=== PATIENT | male | born 1990 | race African-American/Black ===

== ENCOUNTER 2017-10-04 19:04 | Emergency (ER) | payer SELFPAY ==
[2017-10-04 19:47] LABS: ABSOLUTE BASOPHILS # (AUTO) 0.1 10^3/uL (0.0-0.2); ABSOLUTE EOSINOPHILS # (AUTO) 0.3 10^3/uL (0.0-0.6); ABSOLUTE LYMPHOCYTES (AUTO) 2.5 10^3/uL (0.5-4.7); ABSOLUTE MONOCYTES (AUTO) 0.6 10^3/uL (0.1-1.4); ABSOLUTE NEUT (AUTO) 4.8 10^3/uL (1.7-8.2); BASOPHILS % (AUTO) 0.8 % (0-2); EOSINOPHILS % (AUTO) 3.3 % (0-6); HEMATOCRIT 38.8 % (37.9-51.0); HEMOGLOBIN 12.7 g/dL (13.5-17.0); LYMPHOCYTES % (AUTO) 30.3 % (13-45); MEAN CORPUSCULAR HEMOGLOBIN 26.9 pg (27.0-33.4); MEAN CORPUSCULAR HGB CONC 32.7 g/dL (32.0-36.0); MEAN CORPUSCULAR VOLUME 82 fl (80-97); MONOCYTES % (AUTO) 7.7 % (3-13); PLATELET COUNT 357 10^3/uL (150-450); RED BLOOD COUNT 4.71 10^6/uL (4.35-5.55); RED CELL DISTRIBUTION WIDTH 15.8 % (11.5-14.0); SEGMENTED NEUTROPHILS % (AUTO) 57.9 % (42-78); TOTAL CELLS COUNTED % (AUTO) 100 %; WHITE BLOOD COUNT 8.3 10^3/uL (4.0-10.5)
[2017-10-04 20:14] LABS: ALANINE AMINOTRANSFERASE 18 U/L (21-72); ALBUMIN 4.2 g/dL (3.5-5.0); ALKALINE PHOSPHATASE 87 U/L (38-126); ANION GAP 10 (5-19); ASPARTATE AMINO TRANSFERASE 15 U/L (17-59); BILIRUBIN,DIRECT 0.3 mg/dL (0.0-0.4); BILIRUBIN,TOTAL 0.4 mg/dL (0.2-1.3); BLOOD UREA NITROGEN 12 mg/dL (7-20); CALCIUM 10.1 mg/dL (8.4-10.2); CARBON DIOXIDE 30 mmol/L (22-30); CHLORIDE 106 mmol/L (98-107); GLUCOSE 125 mg/dL (75-110); POTASSIUM 4.2 mmol/L (3.6-5.0); SODIUM 145.9 mmol/L (137-145); TOTAL PROTEIN 7.3 g/dL (6.3-8.2)
[2017-10-04 20:15] LABS: ACETAMINOPHEN < 10 ug/mL (10-30); ALCOHOL < 10 mg/dL (NONE DETECTED); SALICYLATE < 1.0 mg/dL (2.0-20.0)
--- NOTE | 2017-10-04 20:49 | ER Document Report ---
ED General - General Chief Complaint: Suicidal Ideation Stated Complaint: PSYCH EVAL Time Seen by Provider: 10/04/17 19:51 Cannot obtain history due to: Uncooperative Notes: Patient is a 27-year-old male who presents after being found in a bathtub with a cell phone cord wrapped around his neck. The patient refused to provide additional history and no additional history can be obtained as there are no surrogates at the bedside. The only report that was given by EMS as the family also noted that he had done heroin and cocaine today. When I try to ask the patient questions he repeatedly states "I do not know" and "I just want to get out of here and go home". TRAVEL OUTSIDE OF THE [place] IN LAST 30 DAYS: No - Related Data Allergies/Adverse Reactions: oxycodone Adverse Reaction (Unverified 10/04/17 19:47) Past Medical History - General Information source: Emergency Med Personnel - Social History Smoking Status: Never Smoker Frequency of alcohol use: Occasional Drug Abuse: Cocaine, Heroin Lives with: Family Family History: Reviewed & Not Pertinent Patient has suicidal ideation: Yes Patient has homicidal ideation: No Renal/ Medical History: Denies: Hx Peritoneal Dialysis - Immunizations Hx Diphtheria, Pertussis, Tetanus Vaccination: No Review of Systems - Review of Systems -: Yes ROS unobtainable due to patient's medical condition Physical Exam - Vital signs Vitals: Temp Pulse Resp BP Pulse Ox 98.5 F 81 20 129/73 H 100 10/04/17 19:21 10/04/17 19:21 10/04/17 19:21 10/04/17 19:21 10/04/17 19:21 Interpretation: Normal Notes: PHYSICAL EXAMINATION: GENERAL: Somewhat disheveled but in no acute distress. HEAD: Atraumatic, normocephalic. EYES: Pupils equal round and reactive to light, extraocular movements intact, sclera anicteric, conjunctiva are normal. ENT: nares patent, oropharynx clear without exudates. Moist mucous membranes. NECK: Normal range of motion, supple without lymphadenopathy LUNGS: Breath sounds clear to auscultation bilaterally and equal. No wheezes rales or rhonchi. HEART: Regular rate and rhythm without murmurs ABDOMEN: Soft, nontender, normoactive bowel sounds. No guarding, no rebound. No masses appreciated. EXTREMITIES: Normal range of motion, no pitting or edema. No cyanosis. NEUROLOGICAL: No focal neurological deficits. Moves all extremities spontaneously and on command. PSYCH: Poor eye contact. Blunted affect. Does not appear to be responding to internal stimuli. SKIN: Warm, Dry, normal turgor, no rashes or lesions noted. Course - Re-evaluation Re-evalutation: 10/04/17 20:46 Patient presents by EMS apparently with an attempted suicide. Patient himself is very resistant to providing history. Virtually any question I asked him he simply replies "I do not know". He denies that he was trying to kill himself today. He states that "this girl" is making him do "these things". When I asked him to elaborate he refuses to do so and covers his head with a blanket. He is denying any additional acute medical complaints. It is entirely unclear to me what is going on with this patient as he is refusing to provide any meaningful history but the report from EMS does state that apparently he was found in a bathtub with a cell phone cord wrapped around his neck. However, the patient himself is denying this account although I do not have any recent distress the EMS report. Will place patient on involuntary commitment,'s medical screening labs are unremarkable, medical screening exam is unremarkable , he is cleared for psychiatric disposition. - Vital Signs Vital signs: Temp Pulse Resp BP Pulse Ox 98.5 F 81 20 129/73 H 100 10/04/17 19:21 10/04/17 19:21 10/04/17 19:21 10/04/17 19:21 10/04/17 19:21 - Laboratory Result Diagrams: 10/04/17 19:20 10/04/17 19:20 Laboratory results interpreted by me: 10/04/17 10/04/17 19:20 19:20 Hgb 12.7 L MCH 26.9 L RDW 15.8 H Sodium 145.9 H Glucose 125 H AST 15 L ALT 18 L Salicylates < 1.0 L Acetaminophen < 10 L - EKG Interpretation by Me Additional EKG results interpreted by me: 10/05/17 03:10 Normal sinus rhythm. Rate 91. No ST elevations or depressions. QTC is 458. Discharge - Discharge Clinical Impression: Suicidal ideation, Suicide attempt Condition: Fair Disposition: PSYCH HOSP/UNIT
[2017-10-04] MEDS ORDERED: IBUPROFEN 600 MG TABLET PO ONE (22:04)
[2017-10-05] MEDS ORDERED: LORAZEPAM INJ 2 MG/1 ML VIAL IM ONE (04:28)
[2017-10-05] MEDS ORDERED: HALOPERIDOL LACTATE INJ 5 MG/1 ML VIAL IM ONE (04:28)
[2017-10-05 09:07] LABS: APPEARANCE,URINE SLIGHTLY-CLOUDY; BILIRUBIN,URINE NEGATIVE (NEGATIVE); COLOR,URINE YELLOW; GLUCOSE, URINE NEGATIVE (NEGATIVE); KETONES,URINE NEGATIVE (NEGATIVE); LEUKOCYTE ESTERASE,URINE NEGATIVE (NEGATIVE); NITRITE,URINE NEGATIVE (NEGATIVE); PROTEIN,URINE NEGATIVE (NEGATIVE); URINE SPECIFIC GRAVITY 1.018
[2017-10-05 09:25] LABS: URINE AMPHETAMINES SCREEN NEGATIVE; URINE BARBITURATES SCREEN NEGATIVE; URINE BENZODIAZEPINES SCREEN NEGATIVE; URINE COCAINE SCREEN UNCONFIRMED POSITIVE; URINE MARIJUANA (THC) SCREEN UNCONFIRMED POSITIVE; URINE METHADONE SCREEN NEGATIVE; URINE PHENCYCLIDINE SCREEN NEGATIVE
--- NOTE | 2017-10-05 09:34 | EKG REPORT ---
SEVERITY:- ABNORMAL ECG - SINUS RHYTHM FIRST DEGREE AV BLOCK : Confirmed by: Chung Garcia 05-Oct-2017 09:32:34
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
--- NOTE | 2017-10-05 09:55 | ER Document Report ---
Doctor's Note Notes: 10/05/17 09:54 Rounds: Chart reviewed. Patient not interviewed because sleeping very soundly and could not awaken him and did not feel the need to talk with him at this time. Labs are all normal with exception of his drug screen which is positive for opiates, marijuana, and cocaine. Vital signs are all normal. Patient appears to be medically stable for transfer or discharge. Marisela Lester MD
[2017-10-05] MEDS ORDERED: BENZTROPINE MESYLATE 1 MG TABLET PO SCH (10:45)
[2017-10-05] MEDS: OLANZAPINE 5 MG TABLET PO SCH (17:29)
[2017-10-06] MEDS ORDERED: ACETAMINOPHEN 325 MG TABLET PO PRN (06:28)
[2017-10-06] MEDS: OLANZAPINE 5 MG TABLET PO SCH (09:48)
--- NOTE | 2017-10-06 10:48 | ER Document Report ---
Doctor's Note Notes: 10/06/17 10:45 Medical rounds: Chart reviewed and patient interviewed briefly. Patient complains of withdrawal symptoms. Vital signs are normal, he is not hypertensive, tachycardic, or tachypneic. Laboratory values are satisfactory. Patient is sleeping soundly, easily awakened, after awakening is alert, oriented , and cooperative. Besides "withdrawal symptoms" patient denies any other somatic complaint. He is medically stable pending placement.
[2017-10-06] MEDS ORDERED: DIVALPROEX SODIUM 250 MG TAB.SR.24H PO SCH (13:00)
--- NOTE | 2017-10-06 13:02 | PSYCHOLOGICAL NOTE ---
Psych Note - Psych Note Psych Note: Reason for Consult: Suicide Attempt Consents given: Michelle Elias, Patient is a 27 year old male brought to the Emergency Department via EMS last night (10.04.2017). Patient was reportedly found in a bathtub with a cell phone cord around his neck in an attempt to strangle himself. Chart review revealed the family reported he had taken heroin and cocaine earlier that day. During the night, the nurse found the patient in his bed with his sheet wrapped around his neck and when asked, the patient indicated he was trying to strangle himself with the sheet. Clinician attempted to complete an evaluation with the patient at 7:18a. Unable to awaken patient. Clinician was able to wake up patient at a later time. Patient stated he was "very tired." He stated that she feels "better" than yesterday. Clinician asked when the last time the patient was able to get some sleep, Patient disclosed that he "can't remember, a long time ago." Patient was lethargic with flat affect. Patient was able to answer questions correctly and thought process currently appear to be organized and linear. Patient was unable to to maintain eye contact. Attention and concentration were very poor. Insight, judgment and impulse control were poor. 1. 296.24 (F32.3) Major Depressive Disorder, single episode, severe, with psychotic features R/O Opiate Use Disorder R/O Cocaine Use Disorder Impression/Plan: Recommend continue IVC. Patient continues to meet [place] G.S. 122C IVC criteria. Patient continues to be a danger to himself as evidenced by poor insight, judgment and lack of impulse control. Currently the patient is presenting with psychiatric concerns of suicidal ideation that he has been self- medicating with illegal substances. Medications recommended to ED physician. Consulted Dr. Ford in the care and management of this patient. ED physician in agreement with recommendations and disposition.
[2017-10-06 13:32] VITALS: BP 102/63
[2017-10-06] MEDS ORDERED: LORAZEPAM 1 MG TABLET PO ONE (13:42)
[2017-10-06] MEDS ORDERED: LORAZEPAM 0.5 MG TABLET PO ONE (13:43)
--- NOTE | 2017-10-06 15:01 | ER Document Report ---
Doctor's Note Notes: 10/06/17 15:00 Pre-transport reassessment: Patient states he feels okay generally. He does complain of some pain in the posterior teeth, bilaterally, both upper and lower. On examination there is quite a bit of dental caries and a couple of fractures, but there is no gingival erythema or swelling to suggest an active infectious process. His vital signs are stable and he is afebrile. He is stable for transport.
== END 2017-10-06 15:15 ==
LOC: ER 19:04
DX: T14.91XA Suicide attempt, initial encounter (principal); X83.8XXA Intentional self-harm by other specified means, initial encounter; F11.10 Opioid abuse, uncomplicated; F14.10 Cocaine abuse, uncomplicated; K02.9 Dental caries, unspecified; K08.89 Other specified disorders of teeth and supporting structures
CPT/HCPCS: 93005; 99285; 96372; 36415; 80307 ×4; 85025; 80053; 81001; 93010; J1630; J3490; J2060

== ENCOUNTER 2018-11-27 17:44 | Inpatient (IN) | payer SELFPAY ==
[2018-11-27] MEDS ORDERED: NALOXONE HCL INJ 2 MG/2 ML DISP.SYRIN ONE (17:55)
[2018-11-27] MEDS ORDERED: NORMAL SALINE 500 ML with NALOXONE HCL 2 MG IV PRN ×4 (18:03→20:11)
--- NOTE | 2018-11-27 18:04 | ER Document Report ---
ED General - General Chief Complaint: Overdose Stated Complaint: POSSIBLE OVERDOSE Time Seen by Provider: 11/27/18 18:01 Notes: 28-year-old male to the emergency department chief complaint of overdose. Family members brought him in after he injected heroin and stopped breathing. By report from his brother's girlfriend started doing CPR on him. They were able to get him into the car. They notified security on arrival that patient was not breathing and CPR was in progress. Security was able to get him into a chair and he was brought immediately back unresponsive to the trauma room. Patient was seen immediately on arrival. Patient unresponsive. Pale. Not breathing. TRAVEL OUTSIDE OF THE [place] IN LAST 30 DAYS: No - HPI Onset: Just prior to arrival Associated symptoms: None - Related Data Allergies/Adverse Reactions: oxycodone Adverse Reaction (Verified 10/05/17 10:40) Past Medical History - General Information source: Relative Cannot obtain history due to: Unstable vital signs, Uncooperative, Altered mental status - Social History Smoking Status: Unknown if Ever Smoked Frequency of alcohol use: Occasional Drug Abuse: Heroin Lives with: Alone Family History: Reviewed & Not Pertinent - Medical History Medical History: Negative - Past Medical History Cardiac Medical History: Reports: None Renal/ Medical History: Denies: Hx Peritoneal Dialysis - Immunizations Hx Diphtheria, Pertussis, Tetanus Vaccination: No Review of Systems - Review of Systems -: Yes ROS unobtainable due to patient's medical condition - unresponsive Physical Exam - Vital signs Vitals: Resp 21 H 11/27/18 17:47 Interpretation: Hypotensive, Tachycardic, Hypoxic - Notes Notes: Patient is pale and unresponsive. Unresponsive to sternal rub. - General General appearance: Appears well, Alert - HEENT Head: Normocephalic, Atraumatic Eyes: Normal Pupils: Pinpoint - Respiratory Respiratory status: Depressed respirations Chest status: Nontender Breath sounds: Decreased air movement Chest palpation: Normal - Cardiovascular Rhythm: Tachycardia Heart sounds: Normal auscultation Murmur: No - Abdominal Inspection: Normal Distension: No distension Bowel sounds: Normal Tenderness: Nontender Organomegaly: No organomegaly - Back Back: Normal, Nontender - Extremities General upper extremity: Normal inspection, Nontender, Normal color, Normal ROM, Normal temperature General lower extremity: Normal inspection, Nontender, Normal color, Normal ROM, Normal temperature. No: Jesus's sign - Neurological Parrish Coma Scale Eye Opening: Spontaneous [place]rish Coma Scale Verbal: None [place] Coma Scale Motor: None [place] Coma Scale Total: 6 - Skin Skin Temperature: Warm Skin Moisture: Dry Skin Color: Normal Course - Re-evaluation Re-evalutation: 11/27/18 19:55 Patient was unresponsive on arrival with agonal respirations. 2 mg of Narcan given IM while IV was being established. A nasal trumpet was inserted by myself. Immediately began doing bag valve mask ventilation while intubation sup plies and IV access obtained. Once IV access obtained 2 additional milligrams of Narcan was given IV. Shortly before intubating the patient patient became more responsive. Opens his eyes and began following commands but was still quite lethargic but appeared to be protecting his airway. Oxygen saturations came up to 100% on a facemask. Emergency airway equipment and endotracheal intubation equipment left at the bedside and ready for endotracheal intubation if needed. 11/27/18 19:56 Laboratory 11/27/18 11/27/18 11/27/18 17:48 17:50 17:50 WBC 21.1 H RBC 5.08 Hgb 14.4 Hct 44.7 MCV 88 MCH 28.3 MCHC 32.2 RDW 16.2 H Plt Count 323 Total Counted 100 Seg Neutrophils % Not Reportable Seg Neuts % (Manual) 50 Lymphocytes % Not Reportable Lymphocytes % (Manual) 43 Monocytes % Not Reportable Monocytes % (Manual) 3 Eosinophils % Not Reportable Eosinophils % (Manual) 3 Basophils % Not Reportable Basophils % (Manual) 1 Absolute Neutrophils Not Reportable Abs Neuts (Manual) 10.6 H Absolute Lymphocytes Not Reportable Abs Lymphs (Manual) 9.1 H Absolute Monocytes Not Reportable Abs Monocytes (Manual) 0.6 Absolute Eosinophils Not Reportable Absolute Eos (Manual) 0.6 Absolute Basophils Not Reportable Abs Basophils (Manual) 0.2 Clumped Platelets PRESENT Platelet Comment ADEQUATE Anisocytosis 1+ Sodium 141.1 Potassium 3.5 L Chloride 100 Carbon Dioxide 24 Anion Gap 17 BUN 12 Creatinine 1.62 H Est GFR ( Amer) > 60 Est GFR (Non-Af Amer) 51 L Glucose 332 H POC Glucose 319 H Calcium 9.1 Total Bilirubin 0.4 Direct Bilirubin 0.2 Neonat Total Bilirubin Not Reportable Neonat Direct Bilirubin Not Reportable Neonat Indirect Bili Not Reportable AST 49 ALT 40 Alkaline Phosphatase 74 Creatine Kinase 160 CK-MB (CK-2) Troponin I Total Protein 8.0 Albumin 4.7 POC Gastric Occult Bld 11/27/18 11/27/18 17:50 18:13 WBC RBC Hgb Hct MCV MCH MCHC RDW Plt Count Total Counted Seg Neutrophils % Seg Neuts % (Manual) Lymphocytes % Lymphocytes % (Manual) Monocytes % Monocytes % (Manual) Eosinophils % Eosinophils % (Manual) Basophils % Basophils % (Manual) Absolute Neutrophils Abs Neuts (Manual) Absolute Lymphocytes Abs Lymphs (Manual) Absolute Monocytes Abs Monocytes (Manual) Absolute Eosinophils Absolute Eos (Manual) Absolute Basophils Abs Basophils (Manual) Clumped Platelets Platelet Comment Anisocytosis Sodium Potassium Chloride Carbon Dioxide Anion Gap BUN Creatinine Est GFR ( Amer) Est GFR (Non-Af Amer) Glucose POC Glucose Calcium Total Bilirubin Direct Bilirubin Neonat Total Bilirubin Neonat Direct Bilirubin Neonat Indirect Bili AST ALT Alkaline Phosphatase Creatine Kinase CK-MB (CK-2) 0.62 Troponin I 0.089 Total Protein Albumin POC Gastric Occult Bld POSITIVE Chest X-Ray 11/27/18 18:02 IMPRESSION: NO ACUTE RADIOGRAPHIC FINDING IN THE CHEST. Patient placed on a Narcan drip. IV fluids started. Blood count is elevated at 21,000 and has a mild elevation in troponin. Not surprised due to the fact of reported CPR. Regardless, there is a high risk an IV drug abuser of bacterial endocarditis so blood cultures, lactate and antibiotics have been ordered at this time. Patient remains responsive. Will place in the ICU at this time. Will monitor closely for signs of ARDS. - Vital Signs Vital signs: Temp Pulse Resp BP Pulse Ox 98.3 F 20 11/27/18 19:17 11/27/18 18:00 - Laboratory Result Diagrams: 11/27/18 17:50 11/27/18 17:50 Laboratory results interpreted by me: 11/27/18 11/27/18 11/27/18 17:48 17:50 17:50 WBC 21.1 H RDW 16.2 H Abs Neuts (Manual) 10.6 H Abs Lymphs (Manual) 9.1 H Potassium 3.5 L Creatinine 1.62 H Est GFR (Non-Af Amer) 51 L Glucose 332 H POC Glucose 319 H - EKG Interpretation by Tn EKG shows normal: Sinus rhythm, [place], Intervals, QRS Complexes, ST-T Waves Critical Care Note - Critical Care Note Total time excluding time spent on procedures (mins): 45 Comments: Hypoxia, drug overdose, immediate airway maintenance Discharge - Discharge Clinical Impression: Heroin overdose Qualifiers: Encounter type: initial encounter Injury intent: accidental or unintentional Qualified Code(s): T40.1X1A - Poisoning by heroin, accidental (unintentional), initial encounter Condition: Good Disposition: ADMITTED INPATIENT Admitting Provider: [facility] Unit Admitted: ICU
[2018-11-27] MEDS ORDERED: ONDANSETRON HCL INJ/PF 4 MG/2 ML SDV ONE (18:12)
[2018-11-27 18:16] LABS: HEMATOCRIT 44.7 % (37.9-51.0); HEMOGLOBIN 14.4 g/dL (13.5-17.0); MEAN CORPUSCULAR HEMOGLOBIN 28.3 pg (27.0-33.4); MEAN CORPUSCULAR HGB CONC 32.2 g/dL (32.0-36.0); MEAN CORPUSCULAR VOLUME 88 fl (80-97); PLATELET COUNT 323 10^3/uL (150-450); RED BLOOD COUNT 5.08 10^6/uL (4.35-5.55); RED CELL DISTRIBUTION WIDTH 16.2 % (11.5-14.0); WHITE BLOOD COUNT 21.1 10^3/uL (4.0-10.5)
[2018-11-27] MEDS ORDERED: ONDANSETRON HCL INJ/PF 4 MG/2 ML SDV IV ONE (18:23)
--- NOTE | 2018-11-27 18:32 | RADIOLOGY REPORT (SQ) ---
EXAM DESCRIPTION: CHEST SINGLE VIEW COMPLETED DATE/TIME: 11/27/2018 6:23 pm REASON FOR STUDY: syncope COMPARISON: None. EXAM PARAMETERS: NUMBER OF VIEWS: One view. TECHNIQUE: Single frontal radiographic view of the chest acquired. RADIATION DOSE: NA LIMITATIONS: None. FINDINGS: LUNGS AND PLEURA: No opacities, masses or pneumothorax. No pleural effusion. MEDIASTINUM AND HILAR STRUCTURES: No masses. Contour normal. HEART AND VASCULAR STRUCTURES: Heart normal in size. Normal vasculature. BONES: No acute findings. HARDWARE: None in the chest. OTHER: No other significant finding. IMPRESSION: NO ACUTE RADIOGRAPHIC FINDING IN THE CHEST. TECHNICAL DOCUMENTATION: JOB ID: [id number] [place]-72 2010 [employer]- All Rights Reserved Reading location - IP/workstation name: [email or web address]
[2018-11-27 18:36] LABS: ABSOLUTE LYMPHOCYTES# (MANUAL) 9.1 10^3/uL (0.5-4.7); ABSOLUTE MONOCYTES # (MANUAL) 0.6 10^3/uL (0.1-1.4); ABSOLUTE NEUTROPHILS# (MANUAL) 10.6 10^3/uL (1.7-8.2); ALANINE AMINOTRANSFERASE 40 U/L (21-72); ALBUMIN 4.7 g/dL (3.5-5.0); ALKALINE PHOSPHATASE 74 U/L (38-126); ANION GAP 17 (5-19); ASPARTATE AMINO TRANSFERASE 49 U/L (17-59); BASOPHILS % (MANUAL) 1 % (0-2); BILIRUBIN,DIRECT 0.2 mg/dL (0.0-0.4); BILIRUBIN,TOTAL 0.4 mg/dL (0.2-1.3); BLOOD UREA NITROGEN 12 mg/dL (7-20); CALCIUM 9.1 mg/dL (8.4-10.2); CARBON DIOXIDE 24 mmol/L (22-30); CHLORIDE 100 mmol/L (98-107); CREATINE KINASE 160 U/L (55-170); EOSINOPHILS % (MANUAL) 3 % (0-6); GLUCOSE 332 mg/dL (75-110); LYMPHOCYTES % (MANUAL) 43 % (13-45); MONOCYTES % (MANUAL) 3 % (3-13); POTASSIUM 3.5 mmol/L (3.6-5.0); SEGMENTED NEUTROPHILS % (MAN) 50 % (42-78); SODIUM 141.1 mmol/L (137-145); TOTAL CELLS COUNTED 100
[2018-11-27 18:37] LABS: ANISOCYTOSIS 1+; PLATELET CLUMPS PRESENT; PLATELET COMMENT ADEQUATE
[2018-11-27 18:44] LABS: CREATINE KINASE MB 0.62 ng/mL (<4.55)
[2018-11-27] MEDS ORDERED: FAMOTIDINE INJ/PF 20 MG/2 ML SDV IV ONE (18:45)
[2018-11-27] MEDS ORDERED: PROMETHAZINE HCL INJ 25 MG/1 ML VIAL IV ONE (18:45)
[2018-11-27] MEDS ORDERED: PROCHLORPERAZINE EDISYLATE INJ 10 MG/2 ML VIAL IV ONE (18:45)
[2018-11-27 18:46] LABS: TROPONIN I 0.089 ng/mL
[2018-11-27] MEDS ORDERED: NORMAL SALINE 1000 ML 1,000 ML IV ONE (19:40)
[2018-11-27] MEDS ORDERED: NALOXONE HCL INJ 2 MG/2 ML DISP.SYRIN IM ONE (19:40)
[2018-11-27] MEDS ORDERED: NALOXONE HCL INJ 2 MG/2 ML DISP.SYRIN IV ONE (19:41)
[2018-11-27] MEDS ORDERED: MEROPENEM 1 GM VIAL IV ONE (19:49)
[2018-11-27] MEDS ORDERED: POTASSI CL 20 MEQ/D5-1/2NS 1L 1,000 ML IV PRN (19:52)
[2018-11-27] MEDS ORDERED: ONDANSETRON HCL INJ/PF 4 MG/2 ML SDV IV PRN (19:52)
[2018-11-27] MEDS ORDERED: MAG HYDROX/AL HYDROX/SIMETH SUSP 30 ML UDCUP PO PRN (19:52)
[2018-11-27] MEDS ORDERED: MAGNESIUM HYDROXIDE SUSP 30 ML UDCUP PO PRN (19:52)
[2018-11-27] MEDS ORDERED: ACETAMINOPHEN 325 MG TABLET PO PRN (20:07)
[2018-11-27] MEDS ORDERED: LABETALOL HCL INJ 20 MG/4 ML DISP.SYRIN IV PRN (20:07)
[2018-11-27] MEDS ORDERED: HYDRALAZINE HCL INJ/PF 20 MG/1 ML SDV IV PRN (20:07)
[2018-11-27] MEDS ORDERED: CHLORPROMAZINE HCL INJ 25 MG/1 ML AMPULE IV PRN (20:07)
[2018-11-27] MEDS ORDERED: ALBUTEROL SULFATE 0.083% NEB 2.5 MG/3 ML AMPUL NEB PRN (20:07)
[2018-11-27] MEDS ORDERED: DIAZEPAM INJ 10 MG/2 ML DISP.SYRIN IV PRN (20:07)
[2018-11-27] MEDS ORDERED: NICOTINE 21 MG/24 HR PATCH.TD24 TD PRN (20:07)
[2018-11-27] MEDS ORDERED: GLUCAGON,HUMAN RECOMB 1 MG INJ IM PRN (20:14)
[2018-11-27] MEDS ORDERED: DEXTROSE 40% GEL 15 GM TUBE PO PRN ×2 (20:14)
[2018-11-27] MEDS ORDERED: DEXTROSE 50%-WATER 25 GM/50 ML DISP.SYRIN IV PRN ×2 (20:14)
[2018-11-27] MEDS ORDERED: INSULIN REG, HUMAN 100 UNIT/ML 3 ML VIAL (PYX) SUBCUT PRN (20:15)
[2018-11-27] MEDS: POTASSI CL 20 MEQ/1/2NS 1L 20 MEQ/1,000 ML RTUINJ IV PRN (21:15)
[2018-11-27 21:29] LABS: CREATINE KINASE MB 1.39 ng/mL (<4.55)
[2018-11-27 21:34] LABS: FREE T3 4.82 pg/mL (2.77-5.27); FREE T4 (FREE THYROXINE) 1.17 ng/dL (0.78-2.19)
[2018-11-27 21:37] LABS: TROPONIN I 0.868 ng/mL
[2018-11-27] MEDS ORDERED: MEROPENEM 1 GM VIAL IV PRN (22:00)
--- NOTE | 2018-11-27 22:31 | EKG REPORT ---
SEVERITY:- BORDERLINE ECG - SINUS RHYTHM BORDERLINE T WAVE ABNORMALITIES : Confirmed by: Clemente Martinez MD 27-Nov-2018 22:29:42
[2018-11-27] MEDS: FAMOTIDINE INJ/PF 20 MG/2 ML SDV IV SCH (23:57)
--- NOTE | 2018-11-28 00:35 | PDOC H&P ---
History of Present Illness Admission Date/PCP: 11/27/18 19:55 Patient complains of: Heroin overdose History of Present Illness: KELSEY ABDUL is a 28 year old male who presented to the emergency room via private vehicle with CPR in progress. The patient's brother gave a history of the patient having injected intravenous heroin and shortly afterward stopped breathing, with these events occurring immediately prior to the patient's arrival at the emergency room. A person who was accompanying them began doing CPR and he was transported their private vehicle where he was continued on CPR during transportation to the ER. CPR was administered by nonmedically trained individuals to the best of their ability throughout the entire prehospital course. Upon arrival at the emergency room the patient was unresponsive, pale, with agonal breathing and severe bradycardia. He was treated emergently with IM and subsequently IV Narcan and is currently on a Narcan infusion. His vital signs stabilized but he had several episodes of vomiting with 1 emesis co ntaining hina blood in a small amount however this occurred shortly after the patient had a nasal trumpet introduced. He was also noted to have an elevated white blood count and a unremarkable chest x-ray. At the time of my evaluation he was very lethargic, limiting his ability to provide information, but complains of chest pain and nausea. Due to his severe overdose and performance of CPR as well as requirement for significant amounts of Narcan and a Narcan infusion patient will be admitted to the ICU for further evaluation and treatment. Past Medical History Past Medical History: Due to patient's lethargy secondary to heroin overdose he is unable to provide extensive information for his medical history, surgical history, social history, family history and review of systems. Information is obtained from other currently available sources and current and past records in order to complete this evaluation. Cardiac Medical History: Denies: Coronary Artery Disease, DVT, Hypertension, Pulmonary Embolism Pulmonary Medical History: Denies: Asthma, Chronic Obstructive Pulmonary Disease (COPD), Sleep Apnea EENT Medical History: Reports: None Neurological Medical History: Denies: Hemorrhagic CVA, Ischemic CVA, Multiple Sclerosis, Seizures Endocrine Medical History: Denies: Diabetes Mellitus Type 1, Diabetes Mellitus Type 2, Hyperthyroidism, Hypothyroidism Renal/ Medical History: Denies: Chronic Kidney Disease, Nephrolithiasis Malignancy Medical History: Reports: None GI Medical History: Denies: Cirrhosis, Hepatitis Musculoskeltal Medical History: Denies: Arthritis, Fibromyalgia Skin Medical History: Denies: Eczema, Psoriasis Psychiatric Medical History: Reports: Depression, Substance Abuse, Other - History of previous suicidal attempt Denies: Alcohol Dependency, Tobacco Dependency Traumatic Medical History: Reports: None Hematology: Denies: Anemia, Bleeding Tendencies Infectious Medical History: Reports: None Past Surgical History Past Surgical History: Due to patient's lethargy secondary to heroin overdose he is unable to provide extensive information for his medical history, surgical history, social history, family history and review of systems. Information is obtained from other currently available sources and current and past records in order to complete this evaluation. Past Surgical History: Reports: None Social History Information Source: Patient Lives with: Family Smoking Status: Never Smoker Frequency of Alcohol Use: Occasional Hx Recreational Drug Use: Yes Drugs: Cocaine, Heroin Hx Prescription Drug Abuse: No Past Social History Note: Due to patient's lethargy secondary to heroin overdose he is unable to provide extensive information for his medical history, surgical history, social history, family history and review of systems. Information is obtained from other currently available sources and current and past records in order to complete this evaluation. - Advance Directive Resuscitation Status: Full Code Surrogate healthcare decision maker:: Chris Abdul Family History Family History: CAD, DM, Hypertension, Malignancy Family History: Due to patient's lethargy secondary to heroin overdose he is unable to provide extensive information for his medical history, surgical history, social history, family history and review of systems. Information is obtained from other currently available sources and current and past records in order to complete this evaluation. Parental Family History Reviewed: Yes Children Family History Reviewed: No Sibling(s) Family History Reviewed.: Yes Medication/Allergy Home Medications: No Home Medications 10/05/17 Allergies/Adverse Reactions: oxycodone Adverse Reaction (Verified 10/05/17 10:40) Review of Systems ROS unobtainable: Due to mental status Review of Systems: Due to patient's lethargy secondary to heroin overdose he is unable to provide extensive information for his medical history, surgical history, social history, family history and review of systems. Information is obtained from other currently available sources and current and past records in order to complete this evaluation. Constitutional: ABSENT: chills, fever(s) Eyes: ABSENT: visual disturbances, other - Eye pain Ears: ABSENT: hearing changes, other - Ear pain Nose, Mouth, and Throat: ABSENT: mouth pain, sore throat Cardiovascular: PRESENT: as per HPI, chest pain. ABSENT: dyspnea on exertion, edema, orthropnea, palpitations Respiratory: ABSENT: cough, dyspnea Gastrointestinal: PRESENT: hematemesis - One episode of vomiting with blood present after nasal trumpet placement in the emergency room, nausea, vomiting. ABSENT: abdominal pain, constipation, diarrhea, hematochezia, melena Genitourinary: ABSENT: dysuria, hematuria Musculoskeletal: ABSENT: back pain, deformity, joint swelling Integumentary: ABSENT: pruritus, rash Neurological: ABSENT: confusion, convulsions, memory loss Psychiatric: ABSENT: anxiety, depression, suicidal ideation Endocrine: ABSENT: cold intolerance, heat intolerance Hematologic/Lymphatic: ABSENT: easy bleeding, easy bruising Physical Exam Vital Signs: Temp Pulse Resp BP Pulse Ox 98.3 F 20 11/27/18 19:17 11/27/18 18:00 General appearance: PRESENT: cooperative, mild distress - Due to nausea, other - On simple mask O2 at 6 L/min, somnolent/lethargic Head exam: PRESENT: atraumatic, normocephalic Eye exam: PRESENT: conjunctiva pink. ABSENT: scleral icterus Ear exam: PRESENT: normal external ear exam. ABSENT: bleeding, drainage Mouth exam: PRESENT: dry mucosa, neck supple Neck exam: ABSENT: JVD, thyromegaly, tracheal deviation Respiratory exam: PRESENT: clear to auscultation elsa, symmetrical, unlabored, other - On simple mask oxygen supplementation at the time my exam Cardiovascular exam: PRESENT: RRR. ABSENT: clicks, diastolic murmur, gallop, rubs, systolic murmur Pulses: PRESENT: normal radial pulses, normal dorsalis pedis pul Vascular exam: PRESENT: pallor - Moderate pallor noted. ABSENT: normal capillary refill - Sluggish capillary refill GI/Abdominal exam: PRESENT: normal bowel sounds, soft Rectal exam: PRESENT: deferred Extremities exam: ABSENT: joint swelling, pedal edema Musculoskeletal exam: ABSENT: deformity, dislocation Neurological exam: PRESENT: altered - Somnolence/lethargic but will arouse very briefly to respond to questions., oriented to person, CN II-XII grossly intact, other - Responses are very minimal and superficial in terms of informational value.. ABSENT: motor sensory deficit Psychiatric exam: PRESENT: appropriate affect, normal mood Skin exam: PRESENT: dry, intact, pallor, warm. ABSENT: jaundice, rash, urticaria Results Laboratory Results: 11/27/18 17:50 11/27/18 17:50 11/27/18 11/27/18 17:50 17:50 WBC 21.1 H RBC 5.08 Hgb 14.4 Hct 44.7 MCV 88 MCH 28.3 MCHC 32.2 RDW 16.2 H Plt Count 323 Seg Neutrophils % Not Reportable Lymphocytes % Not Reportable Monocytes % Not Reportable Eosinophils % Not Reportable Basophils % Not Reportable Absolute Neutrophils Not Reportable Absolute Lymphocytes Not Reportable Absolute Monocytes Not Reportable Absolute Eosinophils Not Reportable Absolute Basophils Not Reportable Sodium 141.1 Potassium 3.5 L Chloride 100 Carbon Dioxide 24 Anion Gap 17 BUN 12 Creatinine 1.62 H Est GFR ( Amer) > 60 Est GFR (Non-Af Amer) 51 L Glucose 332 H Calcium 9.1 Total Bilirubin 0.4 AST 49 ALT 40 Alkaline Phosphatase 74 Total Protein 8.0 Albumin 4.7 11/27/18 11/27/18 17:50 17:50 Creatine Kinase 160 CK-MB (CK-2) 0.62 Troponin I 0.089 Impressions: Chest X-Ray 11/27/18 18:02 IMPRESSION: NO ACUTE RADIOGRAPHIC FINDING IN THE CHEST. Assessment & Plan - Diagnosis (1) Heroin overdose Qualifiers: Encounter type: initial encounter Injury intent: accidental or unintentional Qualified Code(s): T40.1X1A - Poisoning by heroin, accidental (unintentional), initial encounter Is this a current diagnosis for this admission?: Yes Plan: Patient is admitted to the ICU for supportive and symptomatic care. He will receive IV fluids and be monitored continuously by nursing staff and hardwire mineralogy professor. (2) Acute hypoxemic respiratory failure Is this a current diagnosis for this admission?: Yes Plan: Patient will be given supplemental oxygen as needed to maintain an O2 sat of 93% or greater. (3) Acute hypotension Is this a current diagnosis for this admission?: Yes Plan: Patient was hypotensive at the time of his arrival to the emergency room however with IV fluids and Narcan his cardiovascular status has returned to baseline function. He will be monitored in the ICU overnight for further evaluation and treatment as needed. (4) Bradycardia Is this a current diagnosis for this admission?: Yes Plan: Patient was noted to have significant bradycardia with associated pallor at the time of his admission to the ER however again with administration of IV fluids and IV Narcan his cardiovascular function has returned to his baseline. Patient will be monitored on hardwire telemetry in the ICU overnight and will maintain t elemetry monitoring for any further hospital course that may be required. - Time Time Spent: 30 to 50 Minutes Critical Time spent with patient: Less than 15 minutes Anticipated discharge: Home - Inpatient Certification Based on my medical assessment, after consideration of the patient's comorbidities, presenting symptoms, or acuity I expect that the services needed warrant INPATIENT care.: Yes I certify that my determination is in accordance with my understanding of Medicare's requirements for reasonable and necessary INPATIENT services [42 CFR 412.3e].: Yes Medical Necessity: Need Close Monitoring Due to Risk of Patient Decompensation, Need For IV Fluids, Need For Continuous Telemetry Monitoring, Risk of Compli cation if Not Cared For in Hospital
[2018-11-28 00:43] LABS: APPEARANCE,URINE SLIGHTLY-CLOUDY; BILIRUBIN,URINE NEGATIVE (NEGATIVE); COLOR,URINE YELLOW; GLUCOSE, URINE 150 mg/dL (NEGATIVE); KETONES,URINE NEGATIVE (NEGATIVE); LEUKOCYTE ESTERASE,URINE NEGATIVE (NEGATIVE); NITRITE,URINE NEGATIVE (NEGATIVE); PROTEIN,URINE 30 mg/dL (NEGATIVE); UROBILINOGEN,URINE NEGATIVE mg/dL (<2.0)
[2018-11-28 00:59] LABS: URINE AMPHETAMINES SCREEN NEGATIVE; URINE BARBITURATES SCREEN NEGATIVE; URINE BENZODIAZEPINES SCREEN NEGATIVE; URINE COCAINE SCREEN NEGATIVE; URINE MARIJUANA (THC) SCREEN NEGATIVE; URINE METHADONE SCREEN NEGATIVE; URINE PHENCYCLIDINE SCREEN NEGATIVE
[2018-11-28] MEDS: POTASSI CL 20 MEQ/1/2NS 1L 20 MEQ/1,000 ML RTUINJ IV PRN (02:06)
[2018-11-28] MEDS ORDERED: MEROPENEM 1 GM VIAL ONE (02:12)
[2018-11-28 02:20] LABS: ABSOLUTE LYMPHOCYTES (AUTO) 2.2 10^3/uL (0.5-4.7); ABSOLUTE NEUT (AUTO) 11.8 10^3/uL (1.7-8.2); BASOPHILS % (AUTO) 0.3 % (0-2); EOSINOPHILS % (AUTO) 0.3 % (0-6); HEMATOCRIT 40.2 % (37.9-51.0); HEMOGLOBIN 13.3 g/dL (13.5-17.0); LYMPHOCYTES % (AUTO) 14.4 % (13-45); MEAN CORPUSCULAR HEMOGLOBIN 28.1 pg (27.0-33.4); MEAN CORPUSCULAR HGB CONC 33.2 g/dL (32.0-36.0); MEAN CORPUSCULAR VOLUME 85 fl (80-97); MONOCYTES % (AUTO) 6.6 % (3-13); PLATELET COUNT 236 10^3/uL (150-450); RED BLOOD COUNT 4.75 10^6/uL (4.35-5.55); RED CELL DISTRIBUTION WIDTH 15.7 % (11.5-14.0); SEGMENTED NEUTROPHILS % (AUTO) 78.4 % (42-78); TOTAL CELLS COUNTED % (AUTO) 100 %
[2018-11-28 02:43] LABS: ALANINE AMINOTRANSFERASE 28 U/L (21-72); ALBUMIN 3.9 g/dL (3.5-5.0); ALKALINE PHOSPHATASE 57 U/L (38-126); AMYLASE 88 U/L (30-110); ANION GAP 9 (5-19); ASPARTATE AMINO TRANSFERASE 32 U/L (17-59); BILIRUBIN,DIRECT 0.2 mg/dL (0.0-0.4); BILIRUBIN,TOTAL 0.6 mg/dL (0.2-1.3); BLOOD UREA NITROGEN 10 mg/dL (7-20); CALCIUM 8.5 mg/dL (8.4-10.2); CARBON DIOXIDE 24 mmol/L (22-30); CHLORIDE 105 mmol/L (98-107); GLUCOSE 85 mg/dL (75-110); LIPASE 25.1 U/L (23-300); SODIUM 137.9 mmol/L (137-145); TOTAL PROTEIN 6.5 g/dL (6.3-8.2)
[2018-11-28 02:55] LABS: CREATINE KINASE MB 2.93 ng/mL (<4.55)
[2018-11-28 03:05] LABS: TROPONIN I 0.784 ng/mL
[2018-11-28] MEDS ORDERED: NORMAL SALINE 1000 ML 1,000 ML IV ONE (05:00)
[2018-11-28] MEDS ORDERED: MEROPENEM 1 GM in NORMAL SALINE 50 ML IV SCH (06:00)
--- NOTE | 2018-11-28 06:37 | EKG REPORT ---
SEVERITY:- ABNORMAL ECG - SINUS RHYTHM ST ELEVATION ANTEROSEPTAL LEADS CLINICAL CORRELATION AND BIOMARKERS TO CORRELATE : Confirmed by: Clemente Martinez MD 28-Nov-2018 06:37:18
--- NOTE | 2018-11-28 08:34 | RADIOLOGY REPORT (SQ) ---
EXAM DESCRIPTION: CHEST SINGLE VIEW COMPLETED DATE/TIME: 11/28/2018 7:09 am REASON FOR STUDY: heroin OD, Chest pain after CPR COMPARISON: None. EXAM PARAMETERS: NUMBER OF VIEWS: One view. TECHNIQUE: Single frontal radiographic view of the chest acquired. RADIATION DOSE: NA LIMITATIONS: None. FINDINGS: LUNGS AND PLEURA: No opacities, masses or pneumothorax. No pleural effusion. MEDIASTINUM AND HILAR STRUCTURES: No masses. Contour normal. HEART AND VASCULAR STRUCTURES: Heart normal in size. Normal vasculature. BONES: No acute findings. HARDWARE: None in the chest. OTHER: No other significant finding. IMPRESSION: 1. NO ACUTE RADIOGRAPHIC FINDING IN THE CHEST. TECHNICAL DOCUMENTATION: JOB ID: [id number] [employer]- All Rights Reserved Reading location - IP/workstation name: [email or web address]
[2018-11-28 09:06] LABS: CHOLESTEROL 187.56 mg/dL (0-200); CREATINE KINASE 277 U/L (55-170); TRIGLYCERIDES 80 mg/dL (<150)
[2018-11-28] MEDS ORDERED: NORMAL SALINE 1000 ML 1,000 ML IV PRN (09:15)
[2018-11-28 09:17] LABS: CREATINE KINASE MB 3.58 ng/mL (<4.55); DIRECT LDL 118 mg/dL (<100); TROPONIN I 0.327 ng/mL
[2018-11-28] MEDS: FAMOTIDINE INJ/PF 20 MG/2 ML SDV IV SCH ×2 (10:42→21:08)
[2018-11-28] MEDS: DOCUSATE SODIUM 100 MG CAPSULE PO SCH ×2 (10:43→17:50)
--- NOTE | 2018-11-28 15:27 | PDOC PROGRESS REPORT ---
Subjective Progress Note for:: 11/28/18 Subjective:: This is 28 years old black male patient brought by family members via private vehicle unresponsive, hypotensive and bradycardic. Patient overdosed himself with heroin IV. The family members try to resuscitate him en route to [facility] by performing CPR. Patient awakened after he started on IV Narcan bolus and infusion. He is aggressively resuscitated with fluids and his hypotension resolved. This morning his blood pressure is 107/65 and he is still mildly bradycardic with heart rate of 58. Of note patient told him he is recently released from [facility] after 1 year incarceration.when I seen patient is awake alert and oriented. Reason For Visit: ACUTE HEROIN OVERDOSE Physical Exam Vital Signs: Temp Pulse Resp BP Pulse Ox 98.9 F 58 L 11 L 107/65 99 11/28/18 12:00 11/28/18 12:00 11/28/18 13:00 11/28/18 12:17 11/28/18 13:00 Intake & Output 11/27/18 11/28/18 11/29/18 06:59 06:59 06:59 Intake Total 3525 644 Output Total 1525 1225 Balance 1999 -58 Weight 70.6 kg General appearance: PRESENT: no acute distress, well-developed, well-nourished Head exam: PRESENT: atraumatic, normocephalic Eye exam: PRESENT: conjunctiva pink, EOMI, PERRLA. ABSENT: scleral icterus Ear exam: PRESENT: normal external ear exam Mouth exam: PRESENT: moist, tongue midline Neck exam: ABSENT: carotid bruit, JVD, lymphadenopathy, thyromegaly Respiratory exam: PRESENT: clear to auscultation elsa. ABSENT: rales, rhonchi, wheezes Cardiovascular exam: PRESENT: RRR. ABSENT: diastolic murmur, rubs, systolic murmur Pulses: PRESENT: normal dorsalis pedis pul Vascular exam: PRESENT: normal capillary refill GI/Abdominal exam: PRESENT: normal bowel sounds, soft. ABSENT: distended, guarding, mass, organolmegaly, rebound, tenderness Rectal exam: PRESENT: deferred Extremities exam: PRESENT: full ROM. ABSENT: calf tenderness, clubbing, pedal edema Neurological exam: PRESENT: alert, awake, oriented to person, oriented to place, oriented to time, oriented to situation, CN II-XII grossly intact. ABSENT: motor sensory deficit Psychiatric exam: PRESENT: appropriate affect, normal mood. ABSENT: homicidal ideation, suicidal ideation Skin exam: PRESENT: dry, intact, warm. ABSENT: cyanosis, rash Results Laboratory Results: 11/28/18 02:10 11/28/18 02:10 11/27/18 11/27/18 11/27/18 17:50 17:50 20:05 WBC 21.1 H RBC 5.08 Hgb 14.4 Hct 44.7 MCV 88 MCH 28.3 MCHC 32.2 RDW 16.2 H Plt Count 323 Seg Neutrophils % Not Reportable Lymphocytes % Not Reportable Monocytes % Not Reportable Eosinophils % Not Reportable Basophils % Not Reportable Absolute Neutrophils Not Reportable Absolute Lymphocytes Not Reportable Absolute Monocytes Not Reportable Absolute Eosinophils Not Reportable Absolute Basophils Not Reportable Sodium 141.1 Potassium 3.5 L Chloride 100 Carbon Dioxide 24 Anion Gap 17 BUN 12 Creatinine 1.62 H Est GFR ( Amer) > 60 Est GFR (Non-Af Amer) 51 L Glucose 332 H Lactic Acid 2.6 H Calcium 9.1 Magnesium Total Bilirubin 0.4 AST 49 ALT 40 Alkaline Phosphatase 74 Total Protein 8.0 Albumin 4.7 Triglycerides Cholesterol LDL Cholesterol Direct VLDL Cholesterol HDL Cholesterol Amylase Lipase TSH Free T4 Free T3 pg/mL Urine Color Urine Appearance Urine pH Ur Specific Mathews Urine Protein Urine Glucose (UA) Urine Ketones Urine Blood Urine Nitrite Ur Leukocyte Esterase Urine WBC (Auto) Urine RBC (Auto) Blood Type Antibody Screen 11/27/18 11/27/18 11/27/18 20:05 20:40 20:40 WBC RBC Hgb Hct MCV MCH MCHC RDW Plt Count Seg Neutrophils % Lymphocytes % Monocytes % Eosinophils % Basophils % Absolute Neutrophils Absolute Lymphocytes Absolute Monocytes Absolute Eosinophils Absolute Basophils Sodium Potassium Chloride Carbon Dioxide Anion Gap BUN Creatinine Est GFR ( Amer) Est GFR (Non-Af Amer) Glucose Lactic Acid 1.9 Calcium Magnesium Total Bilirubin AST ALT Alkaline Phosphatase Total Protein Albumin Triglycerides Cholesterol LDL Cholesterol Direct VLDL Cholesterol HDL Cholesterol Amylase Lipase TSH Free T4 1.17 Free T3 pg/mL 4.82 Urine Color Urine Appearance Urine pH Ur Specific Mathews Urine Protein Urine Glucose (UA) Urine Ketones Urine Blood Urine Nitrite Ur Leukocyte Esterase Urine WBC (Auto) Urine RBC (Auto) Blood Type Cancelled Antibody Screen Cancelled 11/27/18 11/28/18 11/28/18 20:40 00:17 02:10 WBC 15.0 H RBC 4.75 Hgb 13.3 L Hct 40.2 MCV 85 MCH 28.1 MCHC 33.2 RDW 15.7 H Plt Count 236 Seg Neutrophils % 78.4 H Lymphocytes % 14.4 Monocytes % 6.6 Eosinophils % 0.3 Basophils % 0.3 Absolute Neutrophils 11.8 H Absolute Lymphocytes 2.2 Absolute Monocytes 1.0 Absolute Eosinophils 0.0 Absolute Basophils 0.0 Sodium Potassium Chloride Carbon Dioxide Anion Gap BUN Creatinine Est GFR ( Amer) Est GFR (Non-Af Amer) Glucose Lactic Acid Calcium Magnesium Total Bilirubin AST ALT Alkaline Phosphatase Total Protein Albumin Triglycerides Cholesterol LDL Cholesterol Direct VLDL Cholesterol HDL Cholesterol Amylase Lipase TSH Free T4 Free T3 pg/mL Urine Color YELLOW Urine Appearance SLIGHTLY-CLOUDY Urine pH 6.0 Ur Specific Mathews 1.010 Urine Protein 30 H Urine Glucose (UA) 150 H Urine Ketones NEGATIVE Urine Blood SMALL H Urine Nitrite NEGATIVE Ur Leukocyte Esterase NEGATIVE Urine WBC (Auto) 1 Urine RBC (Auto) 0 Blood Type O POSITIVE Antibody Screen NEGATIVE 11/28/18 11/28/18 11/28/18 02:10 02:10 02:10 WBC RBC Hgb Hct MCV MCH MCHC RDW Plt Count Seg Neutrophils % Lymphocytes % Monocytes % Eosinophils % Basophils % Absolute Neutrophils Absolute Lymphocytes Absolute Monocytes Absolute Eosinophils Absolute Basophils Sodium 137.9 Potassium 5.0 D Chloride 105 Carbon Dioxide 24 Anion Gap 9 BUN 10 Creatinine 1.07 Est GFR ( Amer) > 60 Est GFR (Non-Af Amer) > 60 Glucose 85 Lactic Acid 1.2 Calcium 8.5 Magnesium 1.7 Total Bilirubin 0.6 AST 32 ALT 28 Alkaline Phosphatase 57 Total Protein 6.5 Albumin 3.9 Triglycerides Cholesterol LDL Cholesterol Direct VLDL Cholesterol HDL Cholesterol Amylase 88 Lipase 25.1 TSH 0.39 L Free T4 Free T3 pg/mL Urine Color Urine Appearance Urine pH Ur Specific Mathews Urine Protein Urine Glucose (UA) Urine Ketones Urine Blood Urine Nitrite Ur Leukocyte Esterase Urine WBC (Auto) Urine RBC (Auto) Blood Type Antibody Screen 11/28/18 08:18 WBC RBC Hgb Hct MCV MCH MCHC RDW Plt Count Seg Neutrophils % Lymphocytes % Monocytes % Eosinophils % Basophils % Absolute Neutrophils Absolute Lymphocytes Absolute Monocytes Absolute Eosinophils Absolute Basophils Sodium Potassium Chloride Carbon Dioxide Anion Gap BUN Creatinine Est GFR ( Amer) Est GFR (Non-Af Amer) Glucose Lactic Acid Calcium Magnesium Total Bilirubin AST ALT Alkaline Phosphatase Total Protein Albumin Triglycerides 80 Cholesterol 187.56 LDL Cholesterol Direct 118 H VLDL Cholesterol 16.0 HDL Cholesterol 52 Amylase Lipase TSH Free T4 Free T3 pg/mL Urine Color Urine Appearance Urine pH Ur Specific Mathews Urine Protein Urine Glucose (UA) Urine Ketones Urine Blood Urine Nitrite Ur Leukocyte Esterase Urine WBC (Auto) Urine RBC (Auto) Blood Type Antibody Screen 11/27/18 11/27/18 11/27/18 17:50 17:50 20:40 Creatine Kinase 160 140 CK-MB (CK-2) 0.62 Troponin I 0.089 11/27/18 11/28/18 11/28/18 20:40 02:10 02:10 Creatine Kinase 217 H CK-MB (CK-2) 1.39 2.93 Troponin I 0.868 0.784 11/28/18 11/28/18 08:18 08:18 Creatine Kinase 277 H CK-MB (CK-2) 3.58 Troponin I 0.327 Impressions: Chest X-Ray 11/28/18 06:00 IMPRESSION: 1. NO ACUTE RADIOGRAPHIC FINDING IN THE CHEST. Assessment & Plan - Diagnosis (1) Acute encephalopathy, heroin overdose Is this a current diagnosis for this admission?: Yes Plan: Has resolved. Patient encouraged and counseled not to use IV drug and he voices agreement. (2) Acute hypoxemic respiratory failure Is this a current diagnosis for this admission?: Yes Plan: Resolved (3) Hypotension Is this a current diagnosis for this admission?: Yes Plan: Improving (4) Bradycardia Is this a current diagnosis for this admission?: Yes Plan: Asymptomatic
[2018-11-29 05:50] LABS: ALANINE AMINOTRANSFERASE 29 U/L (21-72); ALKALINE PHOSPHATASE 64 U/L (38-126); ANION GAP 8 (5-19); ASPARTATE AMINO TRANSFERASE 23 U/L (17-59); BILIRUBIN,DIRECT 0.2 mg/dL (0.0-0.4); BILIRUBIN,TOTAL 0.5 mg/dL (0.2-1.3); BLOOD UREA NITROGEN 7 mg/dL (7-20); CALCIUM 9.8 mg/dL (8.4-10.2); CARBON DIOXIDE 28 mmol/L (22-30); CHLORIDE 105 mmol/L (98-107); GLUCOSE 91 mg/dL (75-110); POTASSIUM 3.9 mmol/L (3.6-5.0); SODIUM 140.8 mmol/L (137-145); TOTAL PROTEIN 6.9 g/dL (6.3-8.2)
--- NOTE | 2018-11-29 06:21 | PDOC DISCHARGE SUMMARY ---
General - Admit/Disc Date/PCP Admission Date/Primary Care Provider: 11/27/18 19:55 Discharge Date: 11/29/18 - Discharge Diagnosis (1) Heroin overdose Is this a current diagnosis for this admission?: Yes (2) Acute hypoxemic respiratory failure Is this a current diagnosis for this admission?: Yes (3) Acute hypotension Is this a current diagnosis for this admission?: Yes (4) Bradycardia Is this a current diagnosis for this admission?: Yes - Additional Information Resuscitation Status: Full Code Home Medications: Hydroxyzine Pamoate [Vistaril 50 mg Capsule] 50 mg PO Q4HP PRN 11/28/18 Mirtazapine [Remeron] 15 mg PO QHS 11/28/18 Risperidone [Risperdal 1 mg Tablet] 1 mg PO Q12 11/28/18 History of Present Illness Patient complains of: Acute heroin overdose History of Present Illness: KELSEY KEY is a 28 year old male who presented to the emergency room via private vehicle with CPR in progress. The patient's brother gave a history of the patient having injected intravenous heroin and shortly afterward stopped breathing, with these events occurring immediately prior to the patient's arrival at the emergency room. A person who was accompanying them began doing CPR and he was transported their private vehicle where he was continued on CPR during transportation to the ER. CPR was administered by nonmedically trained individuals to the best of their ability throughout the entire prehospital course. Upon arrival at the emergency room the patient was unresponsive, pale, with agonal breathing and severe bradycardia. He was treated emergently with IM and subsequently IV Narcan and is currently on a Narcan infusion. His vital signs stabilized but he had several episodes of vomiting with 1 emesis containing hina blood in a small amount however this occurred shortly after the patient had a nasal trumpet introduced. He was also noted to have an elevated white blood count and a unremarkable chest x-ray. At the time of my evaluation he was very lethargic, limiting his ability to provide information, but complains of chest pain and nausea. Due to his severe overdose and performance of CPR as well as requirement for significant amounts of Narcan and a Narcan infusion patient will be admitted to the ICU for further evaluation and treatment. Hospital Course Hospital Course: Patient had an uneventful recovery with a Narcan infusion provided for the first 6-8 hours of his hospital course. Narcan infusion has been discontinued as have IV fluids. Patient is doing well with no apparent sequelae of his overdose. His mental status and vital signs have remained very stable and intact and he is tolerating oral intake well with no difficulty eliminating. As he is very st able at this time he will be discharged home in improved and stable condition. Physical Exam Vital Signs: Temp Pulse Resp BP Pulse Ox 98.7 F 67 16 103/63 94 11/29/18 03:00 11/28/18 20:39 11/29/18 03:00 11/29/18 02:48 11/29/18 03:00 Intake & Output 11/27/18 11/28/18 11/29/18 23:59 23:59 23:59 Intake Total 1000 3613 Output Total 4625 400 Balance 1000 -1012 -400 Weight 70.6 kg 70.6 kg General appearance: PRESENT: no acute distress, cooperative Head exam: PRESENT: atraumatic, normocephalic Eye exam: PRESENT: EOMI. ABSENT: scleral icterus Ear exam: PRESENT: normal external ear exam. ABSENT: bleeding, drainage Respiratory exam: PRESENT: symmetrical, unlabored Cardiovascular exam: PRESENT: RRR Rectal exam: PRESENT: deferred Neurological exam: PRESENT: alert, oriented to person, oriented to place, oriented to time, oriented to situation, CN II-XII grossly intact. ABSENT: motor sensory deficit Psychiatric exam: PRESENT: appropriate affect, normal mood Skin exam: PRESENT: dry, intact, warm Results Laboratory Results: 11/29/18 05:16 11/28/18 11/29/18 11/29/18 08:18 05:16 05:16 Sodium 140.8 Potassium 3.9 Chloride 105 Carbon Dioxide 28 Anion Gap 8 BUN 7 Creatinine 0.90 Est GFR ( Amer) > 60 Est GFR (Non-Af Amer) > 60 Glucose 91 Calcium 9.8 Magnesium 2.2 Total Bilirubin 0.5 AST 23 ALT 29 Alkaline Phosphatase 64 Total Protein 6.9 Albumin 4.0 Triglycerides 80 Cholesterol 187.56 LDL Cholesterol Direct 118 H VLDL Cholesterol 16.0 HDL Cholesterol 52 11/27/18 11/27/18 11/27/18 17:50 17:50 20:40 Creatine Kinase 160 140 CK-MB (CK-2) 0.62 Troponin I 0.089 11/27/18 11/28/18 11/28/18 20:40 02:10 02:10 Creatine Kinase 217 H CK-MB (CK-2) 1.39 2.93 Troponin I 0.868 0.784 11/28/18 11/28/18 08:18 08:18 Creatine Kinase 277 H CK-MB (CK-2) 3.58 Troponin I 0.327 Qualifiers - * PATIENT BEING DISCHARGED WITH ANY OF THE FOLLOWING DIAGNOSIS: No Plan Discharge Plan: Discharged home in improved and stable condition. Time Spent: Greater than 30 Minutes
[2018-11-29 06:54] LABS: ABSOLUTE EOSINOPHILS # (AUTO) 0.5 10^3/uL (0.0-0.6); ABSOLUTE LYMPHOCYTES (AUTO) 2.8 10^3/uL (0.5-4.7); ABSOLUTE MONOCYTES (AUTO) 0.8 10^3/uL (0.1-1.4); ABSOLUTE NEUT (AUTO) 3.2 10^3/uL (1.7-8.2); BASOPHILS % (AUTO) 0.6 % (0-2); EOSINOPHILS % (AUTO) 6.5 % (0-6); HEMATOCRIT 42.1 % (37.9-51.0); LYMPHOCYTES % (AUTO) 38.3 % (13-45); MEAN CORPUSCULAR HEMOGLOBIN 28.2 pg (27.0-33.4); MEAN CORPUSCULAR HGB CONC 33.4 g/dL (32.0-36.0); MEAN CORPUSCULAR VOLUME 84 fl (80-97); MONOCYTES % (AUTO) 10.6 % (3-13); PLATELET COUNT 232 10^3/uL (150-450); RED BLOOD COUNT 4.99 10^6/uL (4.35-5.55); RED CELL DISTRIBUTION WIDTH 15.5 % (11.5-14.0); TOTAL CELLS COUNTED % (AUTO) 100 %; WHITE BLOOD COUNT 7.2 10^3/uL (4.0-10.5)
[2018-11-29 07:30] VITALS: BP 122/93
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
[2018-11-30 06:39] LABS: HEPATITIS A AB IGM Negative (Negative); HEPATITIS B CORE AB IGM Negative (Negative); HEPATITS B SURFACE ANTIGEN Negative (Negative)
[2018-11-30 07:39] LABS: HEPATITIS C VIRUS ANTIBODY <0.1 s/co ratio (0.0-0.9)
== END 2018-11-29 10:30 | disposition home or self-care (01) | DRG 917 ==
LOC: ER 17:44 → EH 19:55 → ICU 22:09
PROVIDERS: ADMIT Emergency Medicine; ATTEND Emergency Medicine
PROC: 3E0F73Z Introduction of Anti-inflammatory into Respiratory Tract, Via Natural or Artificial Opening (ICD-10-PCS; principal; 2018-11-27)
DX: T40.1X1A Poisoning by heroin, accidental (unintentional), initial encounter (principal); J96.01 Acute respiratory failure with hypoxia; G92 Toxic encephalopathy; I95.9 Hypotension, unspecified; R00.1 Bradycardia, unspecified; Z83.3 Family history of diabetes mellitus; Y92.9 Unspecified place or not applicable; Z82.49 Family history of ischemic heart disease and other diseases of the circulatory system; Z88.8 Allergy status to other drugs, medicaments and biological substances
CPT/HCPCS: 36415; 36600; 71045; 80048; 80053; 80061; 80074; 80076; 80307; 81001; 82150; 82550; 82553; 82962; 83036; 83605; 83690; 83735; 84439; 84443; 84481; 84484; 85025; 86850; 86900; 86901; 87040; 93005; 93010; 96365; 96366; 96372; 96375; 96376; 99291; J0780; J2185; J2310; J2405; J3480; J3490; J7030; J7040; S0028

== ENCOUNTER 2019-02-06 12:59 | Emergency (ER) | payer SELFPAY ==
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
[2019-02-06 14:29] LABS: ABSOLUTE LYMPHOCYTES (AUTO) 1.7 10^3/uL (0.5-4.7); ABSOLUTE MONOCYTES (AUTO) 1.4 10^3/uL (0.1-1.4); BASOPHILS % (AUTO) 0.2 % (0-2); HEMATOCRIT 45.9 % (37.9-51.0); HEMOGLOBIN 15.1 g/dL (13.5-17.0); LYMPHOCYTES % (AUTO) 10.1 % (13-45); MEAN CORPUSCULAR HEMOGLOBIN 27.9 pg (27.0-33.4); MEAN CORPUSCULAR VOLUME 85 fl (80-97); MONOCYTES % (AUTO) 8.4 % (3-13); PLATELET COUNT 330 10^3/uL (150-450); RED BLOOD COUNT 5.43 10^6/uL (4.35-5.55); RED CELL DISTRIBUTION WIDTH 14.9 % (11.5-14.0); SEGMENTED NEUTROPHILS % (AUTO) 81.3 % (42-78); TOTAL CELLS COUNTED % (AUTO) 100 %; WHITE BLOOD COUNT 17.2 10^3/uL (4.0-10.5)
[2019-02-06 14:42] LABS: INTERNATIONAL RATION (INR) 1.02; PROTHROMBIN TIME 13.9 SEC (11.4-15.4)
[2019-02-06 14:43] LABS: PARTIAL THROMBOPLASTIN TIME 30.1 SEC (23.5-35.8)
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
[2019-02-06 15:00] LABS: ALANINE AMINOTRANSFERASE 38 U/L (21-72); ALBUMIN 4.6 g/dL (3.5-5.0); ALKALINE PHOSPHATASE 63 U/L (38-126); ANION GAP 11 (5-19); ASPARTATE AMINO TRANSFERASE 25 U/L (17-59); BILIRUBIN,DIRECT 0.3 mg/dL (0.0-0.4); BILIRUBIN,TOTAL 0.8 mg/dL (0.2-1.3); BLOOD UREA NITROGEN 12 mg/dL (7-20); CALCIUM 10.3 mg/dL (8.4-10.2); CARBON DIOXIDE 28 mmol/L (22-30); CHLORIDE 102 mmol/L (98-107); GLUCOSE 91 mg/dL (75-110); POTASSIUM 4.9 mmol/L (3.6-5.0); SODIUM 140.8 mmol/L (137-145); TOTAL PROTEIN 7.8 g/dL (6.3-8.2)
[2019-02-06] MEDS ORDERED: IBUPROFEN 800 MG TABLET PO ONE (16:10)
[2019-02-06] MEDS ORDERED: HYDROCODONE/ACETAMINOPHEN 5-325 MG TABLET PO ONE (16:11)
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
[2019-02-06] MEDS ORDERED: HYDROCODONE/ACETAMINOPHEN 5-325 MG (6 TAB/ER DISP) PO PRN (16:18)
[2019-02-06 16:25] VITALS: BP 103/58
== END 2019-02-06 16:34 | disposition home or self-care (01) ==
LOC: ER 12:59
DX: S22.32XA Fracture of one rib, left side, initial encounter for closed fracture (principal); M54.5 Low back pain; V86.96XA Unspecified occupant of dirt bike or motor/cross bike injured in nontraffic accident, initial encounter; F17.200 Nicotine dependence, unspecified, uncomplicated
CPT/HCPCS: 36415; 71260; 74177; 80053; 85025; 85610; 85730; 99284

== ENCOUNTER 2019-02-07 08:34 | Emergency (ER) | payer SELFPAY ==
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
[2019-02-07 09:54] LABS: ABSOLUTE BASOPHILS # (AUTO) 0.1 10^3/uL (0.0-0.2); ABSOLUTE EOSINOPHILS # (AUTO) 0.2 10^3/uL (0.0-0.6); ABSOLUTE LYMPHOCYTES (AUTO) 3.5 10^3/uL (0.5-4.7); ABSOLUTE MONOCYTES (AUTO) 1.1 10^3/uL (0.1-1.4); ABSOLUTE NEUT (AUTO) 4.4 10^3/uL (1.7-8.2); BASOPHILS % (AUTO) 0.7 % (0-2); EOSINOPHILS % (AUTO) 1.8 % (0-6); HEMATOCRIT 44.3 % (37.9-51.0); HEMOGLOBIN 14.6 g/dL (13.5-17.0); LYMPHOCYTES % (AUTO) 37.6 % (13-45); MEAN CORPUSCULAR HEMOGLOBIN 28.1 pg (27.0-33.4); MEAN CORPUSCULAR HGB CONC 32.9 g/dL (32.0-36.0); MEAN CORPUSCULAR VOLUME 85 fl (80-97); MONOCYTES % (AUTO) 12.3 % (3-13); PLATELET COUNT 318 10^3/uL (150-450); RED BLOOD COUNT 5.18 10^6/uL (4.35-5.55); RED CELL DISTRIBUTION WIDTH 15.3 % (11.5-14.0); SEGMENTED NEUTROPHILS % (AUTO) 47.6 % (42-78); TOTAL CELLS COUNTED % (AUTO) 100 %; WHITE BLOOD COUNT 9.2 10^3/uL (4.0-10.5)
[2019-02-07 10:12] LABS: APPEARANCE,URINE CLEAR; BILIRUBIN,URINE NEGATIVE (NEGATIVE); COLOR,URINE YELLOW; GLUCOSE, URINE NEGATIVE (NEGATIVE); KETONES,URINE TRACE mg/dL (NEGATIVE); LEUKOCYTE ESTERASE,URINE NEGATIVE (NEGATIVE); NITRITE,URINE NEGATIVE (NEGATIVE); PROTEIN,URINE NEGATIVE (NEGATIVE); URINE SPECIFIC GRAVITY 1.017; UROBILINOGEN,URINE NEGATIVE mg/dL (<2.0)
[2019-02-07 10:18] LABS: ALANINE AMINOTRANSFERASE 32 U/L (21-72); ALBUMIN 4.6 g/dL (3.5-5.0); ALKALINE PHOSPHATASE 59 U/L (38-126); ANION GAP 9 (5-19); ASPARTATE AMINO TRANSFERASE 30 U/L (17-59); BILIRUBIN,DIRECT 0.3 mg/dL (0.0-0.4); BILIRUBIN,TOTAL 1.1 mg/dL (0.2-1.3); BLOOD UREA NITROGEN 14 mg/dL (7-20); CALCIUM 10.1 mg/dL (8.4-10.2); CARBON DIOXIDE 27 mmol/L (22-30); CHLORIDE 105 mmol/L (98-107); GLUCOSE 89 mg/dL (75-110); POTASSIUM 4.9 mmol/L (3.6-5.0); SODIUM 141.1 mmol/L (137-145); TOTAL PROTEIN 7.7 g/dL (6.3-8.2)
[2019-02-07] MEDS ORDERED: OXYCODONE HCL IR 5 MG TABLET PO ONE (10:35)
[2019-02-07] MEDS ORDERED: KETOROLAC TROMETHAMINE 60 MG/2 ML SDV IM ONE (10:35)
[2019-02-07 11:03] VITALS: BP 116/69
== END 2019-02-07 11:04 | disposition home or self-care (01) ==
LOC: ER 08:34
DX: K92.1 Melena (principal); F17.210 Nicotine dependence, cigarettes, uncomplicated
CPT/HCPCS: 99284; 96372; 36415; 85025; 80053; 81001; J1885

== ENCOUNTER 2019-10-15 03:47 | Emergency (ER) | payer SELFPAY ==
[2019-10-15] MEDS ORDERED: NORMAL SALINE 1000 ML 1,000 ML IV ONE (04:06)
--- NOTE | 2019-10-15 04:07 | ER Document Report ---
ED General - General Chief Complaint: Drug Abuse Stated Complaint: DIFFICULTY BREATHING Time Seen by Provider: 10/15/19 03:57 Primary Care Provider: [facility] [Provider Group] - Follow up as needed [facility] [Provider Group] - Follow up as needed [facility] [Provider Group] - Follow up as needed [facility] [Provider Group] - Follow up as needed Mode of Arrival: Medic Information source: Patient Notes: 29-year-old male presented to ED for complaint of shortness of breath and feeling like his abdomen is very tight. He is in here due to using meds for the last 3 to 4 days. He states he cannot sit down he cannot speak still and he is feeling numbness to his legs. He is alert oriented very anxious. TRAVEL OUTSIDE OF THE [place] IN LAST 30 DAYS: No - HPI Onset: Other - 3 days Onset/Duration: Gradual Quality of pain: No pain Severity: None Pain Level: Denies Associated symptoms: Shortness of breath, Other - Very anxious states his stomach feels tight Exacerbated by: Sitting Relieved by: Denies Similar symptoms previously: Yes Recently seen / treated by doctor: No - Related Data Allergies/Adverse Reactions: No Known Allergies Allergy (Verified 10/15/19 07:47) Home Medications: patient unable to recall medication names Past Medical History - General Information source: Patient - Social History Smoking Status: Current Every Day Smoker Cigarette use (# per day): Yes - 1/2 to 1 pack/day Smoking Education Provided: Yes - 4 minutes Frequency of alcohol use: None Drug Abuse: Methamphetamine Family History: CAD, DM, Hypertension, Malignancy Patient has suicidal ideation: No - denies Patient has homicidal ideation: No - denies - Past Medical History Cardiac Medical History: Reports: None Pulmonary Medical History: Reports: None EENT Medical History: Reports: None Neurological Medical History: Reports: None Endocrine Medical History: Reports: None Renal/ Medical History: Reports: None Malignancy Medical History: Reports None GI Medical History: Reports: None Musculoskeletal Medical History: Reports None Skin Medical History: Reports None Psychiatric Medical History: Reports: Hx Anxiety, Hx Depression, Other - Drug abuse Traumatic Medical History: Reports: None Infectious Medical History: Reports: None Surgical Hx: Negative Past Surgical History: Reports: None - Immunizations Hx Diphtheria, Pertussis, Tetanus Vaccination: No Review of Systems - Review of Systems Constitutional: No symptoms reported EENT: No symptoms reported Cardiovascular: No symptoms reported Respiratory: Short of breath Gastrointestinal: No symptoms reported Genitourinary: No symptoms reported Male Genitourinary: No symptoms reported Musculoskeletal: No symptoms reported Skin: No symptoms reported Hematologic/Lymphatic: No symptoms reported Neurological/Psychological: Anxiety -: Yes All other systems reviewed and negative Physical Exam - Vital signs Vitals: Temp Pulse Resp BP Pulse Ox 98.9 F 103 H 17 126/85 H 97 10/15/19 03:49 10/15/19 03:49 10/15/19 03:49 10/15/19 03:49 10/15/19 03:49 Interpretation: Normal - General General appearance: Appears well, Alert - HEENT Head: Normocephalic, Atraumatic Eyes: Normal Pupils: PERRL - Respiratory Respiratory status: No respiratory distress Chest status: Nontender Breath sounds: Normal Chest palpation: Normal - Cardiovascular Rhythm: Regular Heart sounds: Normal auscultation Murmur: No - Abdominal Inspection: Normal Distension: No distension Bowel sounds: Normal Tenderness: Nontender Organomegaly: No organomegaly - Back Back: Normal, Nontender - Extremities General upper extremity: Normal inspection, Nontender, Normal color, Normal ROM, Normal temperature General lower extremity: Normal inspection, Nontender, Normal color, Normal ROM, Normal temperature, Normal weight bearing. No: Jesus's sign - Neurological Neuro grossly intact: Yes Cognition: Normal Orientation: AAOx4 Parrish Coma Scale Eye Opening: Spontaneous Parrish Coma Scale Verbal: Oriented Parrish Coma Scale Motor: Obeys Commands Parrish Coma Scale Total: 15 Speech: Normal Motor strength normal: LUE, RUE, LLE, RLE Sensory: Normal - Psychological Associated symptoms: Normal affect, Normal mood - Skin Skin Temperature: Warm Skin Moisture: Dry Skin Color: Normal Course - Re-evaluation Re-evalutation: 10/15/19 08:32 Patient refused multiple treatments and refused to have a complete assessment. Patient would not stay in the bed. Patient was instructed multiple times that in order for us to treat him he had to let us draw blood, 1 IV fluids, and monitor him. After he refused multiple times he was discharged home AGAINST MEDICAL ADVICE. - Vital Signs Vital signs: Temp Pulse Resp BP Pulse Ox 98 F 103 H 14 125/88 H 100 10/15/19 06:56 10/15/19 03:49 10/15/19 07:01 10/15/19 07:01 10/15/19 07:01 - Laboratory Result Diagrams: 10/15/19 04:12 10/15/19 05:00 Laboratory results interpreted by me: 10/15/19 10/15/19 10/15/19 04:12 05:00 05:10 WBC 10.8 H RDW 14.9 H Luna % (Auto) 13.4 H Chloride 97 L Total Protein 9.2 H Albumin 5.2 H Urine Protein 30 H Urine Ketones 80 H Urine Blood SMALL H Acetaminophen < 10 L Discharge - Discharge Clinical Impression: Drug abuse, Shortness of breath Condition: Stable Disposition: AGAINST MEDICAL ADVICE Additional Instructions: You were seen here today for shortness of breath after he used meth for the last 3 days. You will be discharged AGAINST MEDICAL ADVICE as you have refused multiple treatments. You have refused your IV multiple times. Refused Ativan which would have helped you to relax so that we could have completed your treatment. You have refused to stay in the bed so that we can monitor you properly. We cannot properly evaluate you and treat you if you continue to refuse everything we try to do. Your vital signs are stable at this time and we will be discharging you to follow-up with your primary doctor. FOLLOW-UP CARE: If you have been referred to a physician for follow-up care, call the physicia office for an appointment as you were instructed or within the next two days. If you experience worsening or a significant change in your symptoms, notify the physician immediately or return to the Emergency Department at any time for re-evaluation. Forms: Elevated Blood Pressure, Smoking Cessation Education Referrals: [facility] [Provider Group] - Follow up as needed [facility] [Provider Group] - Follow up as needed [facility] [Provider Group] - Follow up as needed [facility] [Provider Group] - Follow up as needed
[2019-10-15 04:31] LABS: ABSOLUTE EOSINOPHILS # (AUTO) 0.1 10^3/uL (0.0-0.6); ABSOLUTE LYMPHOCYTES (AUTO) 3.1 10^3/uL (0.5-4.7); ABSOLUTE MONOCYTES (AUTO) 1.4 10^3/uL (0.1-1.4); ABSOLUTE NEUT (AUTO) 6.1 10^3/uL (1.7-8.2); BASOPHILS % (AUTO) 0.4 % (0-2); EOSINOPHILS % (AUTO) 1.3 % (0-6); HEMATOCRIT 48.6 % (37.9-51.0); HEMOGLOBIN 15.7 g/dL (13.5-17.0); LYMPHOCYTES % (AUTO) 28.4 % (13-45); MEAN CORPUSCULAR HEMOGLOBIN 28.9 pg (27.0-33.4); MEAN CORPUSCULAR HGB CONC 32.2 g/dL (32.0-36.0); MEAN CORPUSCULAR VOLUME 90 fl (80-97); MONOCYTES % (AUTO) 13.4 % (3-13); PLATELET COUNT 305 10^3/uL (150-450); RED BLOOD COUNT 5.41 10^6/uL (4.35-5.55); RED CELL DISTRIBUTION WIDTH 14.9 % (11.5-14.0); SEGMENTED NEUTROPHILS % (AUTO) 56.5 % (42-78); TOTAL CELLS COUNTED % (AUTO) 100 %; WHITE BLOOD COUNT 10.8 10^3/uL (4.0-10.5)
[2019-10-15] MEDS ORDERED: LORAZEPAM INJ 2 MG/1 ML VIAL IM ONE (05:00)
[2019-10-15 05:46] LABS: ALBUMIN 5.2 g/dL (3.5-5.0); ALKALINE PHOSPHATASE 66 U/L (38-126); ANION GAP 15 (5-19); ASPARTATE AMINO TRANSFERASE 35 U/L (17-59); BILIRUBIN,DIRECT 0.3 mg/dL (0.0-0.4); BILIRUBIN,TOTAL 1.1 mg/dL (0.2-1.3); BLOOD UREA NITROGEN 14 mg/dL (7-20); CALCIUM 9.9 mg/dL (8.4-10.2); CARBON DIOXIDE 25 mmol/L (22-30); CHLORIDE 97 mmol/L (98-107); GLUCOSE 82 mg/dL (75-110); POTASSIUM 4.3 mmol/L (3.6-5.0); TOTAL PROTEIN 9.2 g/dL (6.3-8.2)
[2019-10-15 05:51] LABS: ACETAMINOPHEN < 10 ug/mL (10-30); ALCOHOL < 10 mg/dL (NONE DETECTED)
[2019-10-15 06:05] LABS: APPEARANCE,URINE CLEAR; BILIRUBIN,URINE NEGATIVE (NEGATIVE); COLOR,URINE YELLOW; GLUCOSE, URINE NEGATIVE (NEGATIVE); KETONES,URINE 80 mg/dL (NEGATIVE); PROTEIN,URINE 30 mg/dL (NEGATIVE); URINE SPECIFIC GRAVITY 1.027; UROBILINOGEN,URINE NEGATIVE mg/dL (<2.0)
[2019-10-15 06:13] LABS: URINE BARBITURATES SCREEN NEGATIVE; URINE BENZODIAZEPINES SCREEN NEGATIVE; URINE COCAINE SCREEN NEGATIVE; URINE MARIJUANA (THC) SCREEN NEGATIVE; URINE METHADONE SCREEN NEGATIVE; URINE PHENCYCLIDINE SCREEN NEGATIVE
[2019-10-15 07:08] VITALS: BP 125/88
== END 2019-10-15 07:51 | disposition left against medical advice (07) ==
LOC: ER 03:47
DX: R06.02 Shortness of breath (principal); F19.10 Other psychoactive substance abuse, uncomplicated; F41.9 Anxiety disorder, unspecified; F17.210 Nicotine dependence, cigarettes, uncomplicated
CPT/HCPCS: 99285; 96360; 96361; 36415; 80307 ×3; 85025; 80053; 81001; J7030